=== PATIENT | female | born 1945 | race Caucasian/White ===

== ENCOUNTER 2017-01-14 12:42 | Emergency (ER) | payer BC, MEDICARE ==
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
--- NOTE | 2017-01-14 13:53 | CT ---
EXAMINATION TYPE: CT brain annabella byrd DATE OF EXAM: 01/14/2017 COMPARISON: NONE HISTORY: Fall with posterior head injury. CT DLP: 1444.10 mGycm Automated exposure control for dose reduction was used. TECHNIQUE: CT scan of the head and cervical spine are performed without contrast. FINDINGS: BRAIN: The ventricles are dilated out of keeping with the degree of sulcal prominence. There is periv entricular white matter lucency which may be on the basis of chronic ischemic change or transependyma l resorption of CSF. There is no acute focal lesion, mass effect or midline shift identified. I do no t see evidence of intracranial blood. Visualized portions of the paranasal sinuses and mastoids are clear. No displaced skull fracture is s een. IMPRESSION: 1. FINDINGS SUSPICIOUS FOR NORMAL PRESSURE HYDROCEPHALUS. 2. NO ACUTE INTRACRANIAL ABNORMALITY. 3. PERIVENTRICULAR WHITE MATTER LUCENCY MAY BE ON THE BASIS OF CHRONIC ISCHEMIC CHANGE OR TRANSEPENDY MAL RESORPTION OF CSF. CERVICAL SPINE: There are emphysematous changes within the lungs. There is some shotty cervical adenopathy. No pathologically enlarged lymph nodes are seen. Vertebral body height and alignment are maintained. Atlantoaxial relationships are normal. There is f acet arthropathy on the left at C3-4 and C4-5 no definite protrusion is seen. No fractures are seen. IMPRESSION: 1. NO ACUTE OSSEOUS LESION. 2. MILD DEGENERATIVE CHANGE. 3. EMPHYSEMATOUS CHANGE.
--- NOTE | 2017-01-14 14:01 | XR ---
EXAMINATION TYPE: XR hand complete RT , 4 VIEWS DATE OF EXAM ORDERED: 01/14/2017 HISTORY: Pain. COMPARISON: None. FINDINGS: The bones are osteopenic likely on the basis of osteoporosis. There is degenerative change s in the second through fifth PIP and DIP joints worse in the DIP joint of the index finger. No acute fracture or dislocation is seen. IMPRESSION: 1. NO ACUTE OSSEOUS LESION. 2. DEGENERATIVE CHANGE.
[2017-01-14] MEDS ORDERED: LIDOCAINE/EPINEPHR/TETRACAINE 5 ML BOTTLE TOPICAL ONE (14:14)
[2017-01-14 15:05] VITALS: BP 120/70; PULSE 68; RESP 18; TEMP 98
== END 2017-01-14 15:16 | disposition home or self-care (01) ==
LOC: EC 12:42
DX: S01.01XA Laceration without foreign body of scalp, initial encounter (principal); S63.91XA Sprain of unspecified part of right wrist and hand, initial encounter; E78.5 Hyperlipidemia, unspecified; E07.9 Disorder of thyroid, unspecified; Z79.82 Long term (current) use of aspirin; Z79.899 Other long term (current) drug therapy; W18.00XA Striking against unspecified object with subsequent fall, initial encounter
CPT/HCPCS: 12002; 70450; 72125; 99284